=== PATIENT | female | born 2005 | race Caucasian/White ===

== ENCOUNTER 2024-04-24 15:57 | Emergency (ER) | payer OTHER ==
[~2024-04-24] VITALS: Ht 154.9 cm; Wt 70.3 kg
[2024-04-24] MEDS ORDERED: PROG1CAP8 PO (16:13)
[2024-04-24 16:43] LABS: BASO % 0.7 % (0.0-1.0); EOS # 0.1 10^3/uL (0.0-0.5); EOS % 1.5 % (0.0-3.0); HEMATOCRIT 41.4 % (36.0-47.0); HEMOGLOBIN 13.9 g/dl (12.0-15.5); LYMPH # 2.1 10^3/uL (1.5-5.0); LYMPH % 34.8 % (24.0-44.0); MEAN CORPUSCULAR HEMOGLOBIN 28.9 pg (27.0-33.0); MEAN CORPUSCULAR HGB CONC 33.6 g/dl (32.0-36.5); MEAN CORPUSCULAR VOLUME 86.1 fl (80.0-96.0); MONO # 0.4 10^3/uL (0.0-0.8); MONO % 6.6 % (2.0-8.0); NEUTROPHILS # 3.4 10^3/uL (1.5-8.5); NEUTROPHILS % 56.2 % (36.0-66.0); PLATELET COUNT, AUTOMATED 359 10^3/uL (150-450); RED BLOOD COUNT 4.81 10^6/uL (4.00-5.40); WHITE BLOOD COUNT 6.1 10^3/uL (4.0-10.0)
[2024-04-24 16:59] LABS: HCG, SERUM QUALITATIVE NEGATIVE (NEGATIVE); LIPASE 47 U/L (12-53)
[2024-04-24 17:01] LABS: ALKALINE PHOSPHATASE 84 U/L (35-104); ALT/SGPT 75 U/L (7.0-40); AST/SGOT 26 U/L (<34); BILIRUBIN,DIRECT 0.1 MG/DL (<0.4); BILIRUBIN,TOTAL 0.5 MG/DL (0.3-1.2); BLOOD UREA NITROGEN 8 MG/DL (9-23); CARBON DIOXIDE LEVEL 27 MMOL/L (20-31); CHLORIDE LEVEL 109 MMOL/L (98-107); CREATININE FOR GFR 0.61 MG/DL (0.55-1.30); GLUCOSE, FASTING 110 MG/DL (60-100); POTASSIUM SERUM 3.7 MMOL/L (3.5-5.1); SODIUM LEVEL 142 MMOL/L (136-145); TOTAL PROTEIN 7.4 G/DL (5.7-8.2)
[2024-04-24 18:42] VITALS: BP 121/68; TEMP 97.6; O2SAT 99
== END 2024-04-24 18:49 | disposition home or self-care (01) ==
LOC: M ED 15:57
DX: R10.31 Right lower quadrant pain (principal); K59.00 Constipation, unspecified; K42.9 Umbilical hernia without obstruction or gangrene; Z79.899 Other long term (current) drug therapy